=== PATIENT | female | born 1975 | race Caucasian/White ===

== ENCOUNTER 2016-06-19 17:21 | Emergency (ER) | payer OTHER ==
[2016-06-19 17:27] VITALS: TEMP 98.3; BMI 35.4
--- NOTE | 2016-06-19 18:56 | PDOC ---
History of Present Illness - General Chief Complaint: Pain Stated Complaint: PAIN Time Seen by Provider: 06/19/16 18:26 - History of Present Illness Initial Comments: 06/19/16 19:22 Patient brought to emergency department to be evaluated for generalized weakness and significant pain progressive over this past week. No history of trauma, exercise changes, or recent illness. Denies fevers, ear or throat pain, no rashes or lesions, no cough shortness of breath, chest pain or palpitations. Has taken ibuprofen or Tylenol for pain relief with no resolved. Patient is non- insulin-dependent diabetic with borderline hypertension. States blood sugars were "normal" last week. As patient has multiple comorbidities and probable complicated workup, was moved to main emergency department for evaluation and treatment. Family and patient updated to plan, given turnover to NAKITA Mendoza. Past History - Past Medical History Allergies/Adverse Reactions: Allergies Allergy/AdvReac Type Severity Reaction Status Date / Time piperacillin sodium AdvReac Mild Itching Verified 06/19/16 17:27 [From Zosyn] tazobactam sodium AdvReac Mild Itching Verified 06/19/16 17:27 [From Zosyn] Home Medications: Ambulatory Orders Levofloxacin [Levaquin] 500 mg PO DAILY #3 tablet 04/24/16 Oxycodone HCl/Acetaminophen [Percocet 5-325 mg Tablet] 1 - 2 tab PO Q6H #28 tab MDD 4 04/24/16 Asthma: No Cancer: No Cardiac Disorders: No Diabetes: Yes HTN: No Seizures: No Thyroid Disease: No - Surgical History Cholecystectomy: Yes - Psycho/Social/Smoking Cessation Hx Anxiety: No Suicidal Ideation: No Smoking History: Never smoked Have you smoked in the past 12 months: No Hx Alcohol Use: No Drug/Substance Use Hx: No Substance Use Type: None Hx Substance Use Treatment: No *Physical Exam - Vital Signs Last Vital Signs Temp Pulse Resp BP Pulse Ox 98.3 F 85 20 148/94 99 06/19/16 17:23 06/19/16 17:23 06/19/16 17:23 06/19/16 17:23 06/19/16 17:23 ED Treatment Course - LABORATORY CBC & Chemistry Diagram: 06/19/16 19:15 06/19/16 19:15
[2016-06-19 19:29] LABS: BASOPHIL 0.3 % (0-2.0); EOSINOPHIL 2.5 % (0-4.5); MCH 27.7 pg (25.7-33.7); MCHC 33.6 g/dl (32.0-36.0); MEAN CELL VOLUME 82.5 fl (80-96); MEAN PLT VOLUME 7.9 fl (7.5-11.1); NEUTROPHILS 72.7 % (42.8-82.8); PLATELET COUNT 287 K/MM3 (134-434); RDW 13.7 % (11.6-15.6); WHITE BLOOD COUNT 9.6 K/mm3 (4.0-10.0)
[2016-06-19 20:05] LABS: ALBUMIN 3.9 g/dl (3.4-5.0); ANION GAP 9 (8-16); BILIRUBIN,TOTAL 0.4 mg/dL (0.2-1.0); CALCIUM 8.6 mg/dL (8.5-10.1); CO2 25 mmol/L (21-32); CREATININE 0.5 mg/dL (0.55-1.02); GLUCOSE,RANDOM 91 mg/dL (74-106); SGOT/AST 84 U/L (15-37); TOT PROT 7.6 g/dl (6.4-8.2)
[2016-06-19 20:11] LABS: ALK PHOS 124 U/L (45-117); SGPT/ALT 150 U/L (12-78)
[2016-06-19 20:40] LABS: AMYLASE 69 U/L (25-115)
[2016-06-19 20:47] LABS: ERYTHROCYTE SEDIMENTATION RATE 23 mm/hr (0-20)
[2016-06-19 20:48] LABS: URINE APPEARANCE CLEAR; URINE BILIRUBIN NEGATIVE (NEGATIVE); URINE BLOOD NEGATIVE (NEGATIVE); URINE COLOR LTYELLOW; URINE GLUCOSE (UA) NEGATIVE (NEGATIVE); URINE KETONE NEGATIVE (NEGATIVE); URINE LEUK ESTERASE NEGATIVE (NEGATIVE); URINE NITRITE NEGATIVE (NEGATIVE); URINE PROTEIN NEGATIVE (NEGATIVE); URINE UROBILINOGEN 2.0 E.U/dl E.U./dl (0.2-1.0)
--- NOTE | 2016-06-19 21:45 | PDOC ---
History of Present Illness - General Chief Complaint: Pain Stated Complaint: PAIN Time Seen by Provider: 06/19/16 18:26 History Source: Patient, Significant Other Exam Limitations: Language Barrier - History of Present Illness Initial Comments: 06/19/16 21:40 41yo Female patient presents to ED c/o Lt hip pain, bilateral shoulder pain beginning 2 weeks ago. Patient states she is unable to walk today. Denies fall, injury, or trauma. Denies medications use. Denies n/v/d, fever, CP, Abd pain, back pain, diff breathing, or any other complaints at this time. Associated sweating. Patient reports having a baby 1 year ago. Timing/Duration: other (2 weeks.) Severity: moderate Modifying Factors: improves with: rest Associated Symptoms: reports: diaphoresis, weakness. denies: chest pain, fever/ chills, headaches, malaise, seizure, shortness of breath, syncope Past History - Travel Traveled outside of the country in the last 30 days: No Close contact w/someone who was outside of country & ill: No - Past Medical History Allergies/Adverse Reactions: Allergies Allergy/AdvReac Type Severity Reaction Status Date / Time piperacillin sodium AdvReac Mild Itching Verified 06/19/16 17:27 [From Zosyn] tazobactam sodium AdvReac Mild Itching Verified 06/19/16 17:27 [From Zosyn] Home Medications: Ambulatory Orders Ibuprofen 600 mg PO Q6H PRN #30 tablet 06/20/16 Oxycodone HCl/Acetaminophen [Endocet 7.5-325 mg Tablet] 1 each PO Q4H PRN #18 tablet MDD 4 tabs 06/20/16 Prednisone [Deltasone -] 40 mg PO DAILY #14 tablet 06/20/16 Asthma: No Cancer: No Cardiac Disorders: No Diabetes: Yes HTN: No Seizures: No Thyroid Disease: No - Surgical History Cholecystectomy: Yes - Psycho/Social/Smoking Cessation Hx Anxiety: No Suicidal Ideation: No Smoking History: Never smoked Have you smoked in the past 12 months: No Hx Alcohol Use: No Drug/Substance Use Hx: No Substance Use Type: None Hx Substance Use Treatment: No Review of Systems - Review of Systems Able to Perform ROS?: Yes Is the patient limited Cambodian proficient: No Constitutional: Yes: Weakness. No: Chills, Fever, Loss of Appetite, Malaise, Night Sweats, Unexplained wgt Loss HEENTM: No: Blurred Vision, Double Vision, Throat Pain, Difficulty Swallowing Respiratory: No: Cough, Orthopnea, Shortness of Breath, Stridor, Wheezing, Productive cough, Hemoptysis Cardiac (ROS): No: Chest Pain, Edema, Lightheadedness, Palpitations, Syncope, Chest Tightness ABD/GI: No: Constipated, Diarrhea, Nausea, Poor Appetite, Vomiting : No: Dysuria, Frequency, Flank Pain, Hematuria Musculoskeletal: Yes: Joint Pain, Muscle Weakness. No: Back Pain, Muscle Pain, Neck Pain Integumentary: Yes: Sweating. No: Bruising, Erythema, Pruritus, Rash Neurological: Yes: Weakness, Unsteady Gait. No: Headache, Numbness, Paresthesia , Seizure, Tingling, Tremors, Ataxia Psychiatric: No: Anxiety, Depression, Stressors All Other Systems: Reviewed and Negative *Physical Exam - Vital Signs Last Vital Signs Temp Pulse Resp BP Pulse Ox 98.3 F 85 20 148/94 99 06/19/16 17:23 06/19/16 17:23 06/19/16 17:23 06/19/16 17:23 06/19/16 17:23 - Physical Exam General Appearance: Yes: Nourished, Appropriately Dressed. No: Apparent Distress, Mild Distress, Moderate Distress, Severe Distress HEENT: positive: EOMI, CHRISSY, Normal ENT Inspection, Normal Voice, Symmetrical, TMs Normal, Pharynx Normal. negative: Pale Conjunctivae, Photophobia, Nasal Congestion, Rhinorrhea, Sinus Tenderness, TM Bulging, TM Dull, TM Erythema Neck: positive: Trachea midline, Supple. negative: Rigid, Decreased range of motion, Stridor Respiratory/Chest: positive: Lungs Clear, Normal Breath Sounds. negative: Respiratory Distress, Accessory Muscle Use, Labored Respiration, Rapid RR Cardiovascular: positive: Regular Rhythm, Regular Rate. negative: Edema, JVD, Murmur Gastrointestinal/Abdominal: positive: Normal Bowel Sounds, Soft, Distended. negative: Tender, Guarding, Rebound, Tenderness Musculoskeletal: positive: Normal Inspection. negative: CVA Tenderness, CVA Tenderness (R), CVA Tenderness (L) Extremity: positive: Normal Capillary Refill, Normal Inspection, Normal Range of Motion, Tender (+ Tenderness to Lt hip on examination. Decreased passive ROM. 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 intact, Fully Oriented, Alert, Normal Mood/ Affect, Normal Response ED Treatment Course - LABORATORY CBC & Chemistry Diagram: 06/19/16 19:15 06/19/16 19:15 - ADDITIONAL ORDERS Additional order review: Laboratory Results 06/19/16 06/19/16 06/19/16 20:10 19:38 19:15 Sodium Potassium Chloride Carbon Dioxide Anion Gap BUN Creatinine Creat Clearance w eGFR Random Glucose Calcium Total Bilirubin AST ALT Alkaline Phosphatase C-Reactive Protein 3.0 H D Total Protein Albumin Total Amylase Cancelled Lipase Cancelled Urine Color Ltyellow Urine Appearance Clear Urine pH 7.0 Ur Specific [place] 1.018 Urine Protein Negative Urine Glucose (UA) Negative Urine Ketones Negative Urine Blood Negative Urine Nitrite Negative Urine Bilirubin Negative Urine Urobilinogen 2.0 e.u/dl H Ur Leukocyte Esterase Negative Urine HCG, Qual Negative 06/19/16 19:15 Sodium 139 Potassium 4.1 Chloride 105 Carbon Dioxide 25 Anion Gap 9 BUN 8 Creatinine 0.5 L Creat Clearance w eGFR > 60 Random Glucose 91 Calcium 8.6 Total Bilirubin 0.4 D AST 84 H ALT 150 H Alkaline Phosphatase 124 H C-Reactive Protein Total Protein 7.6 D Albumin 3.9 D Total Amylase 69 D Lipase 125 Urine Color Urine Appearance Urine pH Ur Specific [place] Urine Protein Urine Glucose (UA) Urine Ketones Urine Blood Urine Nitrite Urine Bilirubin Urine Urobilinogen Ur Leukocyte Esterase Urine HCG, Qual 06/19/16 19:15 RBC 5.00 MCV 82.5 MCHC 33.6 RDW 13.7 MPV 7.9 Neutrophils % 72.7 Lymphocytes % 17.2 D Monocytes % 7.3 Eosinophils % 2.5 D Basophils % 0.3 - RADIOLOGY Radiology Studies Ordered: Category Date Time Status HEAD CT WITHOUT CONTRAST [CT] Stat CT Scan 06/19/16 21:37 Ordered CHEST PA & LAT [RAD] Stat Radiology 06/19/16 19:25 Ordered HIP & PELVIS-LEFT [RAD] Stat Radiology 06/19/16 19:25 Ordered Medical Decision Making - Medical Decision Making 06/20/16 00:51 Ct- Head- Neg Xrays- Neg. Elevated CRP and ESR. Patient ambulated to [facility] with minimal assistance. Still has pain to left hip.] Plan: f/u with Tubing Tester and Rx pain and steroids. *DC/Admit/Observation/Transfer Diagnosis at time of Disposition: Polymyalgia - Discharge Dispostion Disposition: HOME Condition at time of disposition: Improved Admit: No - Prescriptions Prescriptions: Prednisone [Deltasone -] 40 mg PO DAILY #14 tablet Oxycodone HCl/Acetaminophen [Endocet 7.5-325 mg Tablet] 1 each PO Q4H PRN #18 tablet MDD 4 tabs PRN Reason: Severe Pain Ibuprofen 600 mg PO Q6H PRN #30 tablet PRN Reason: Pain - Referrals Referrals: Fidelina Álvarez MD [Primary Care Provider] - Javon Reyes MD [Staff Physician] - - Patient Instructions Printed Discharge Instructions: Polymyalgia Rheumatica Additional Instructions: FOLLOW UP WITH DR. REYES (ORTHOPEDIC). CALL TO SCHEDULE APPOINTMENT. TAKE MEDICATIONS PRESCRIBED. DO NOT DRIVE, DRINK ALCOHOL, OR OPERATE HEAVY MACHINERY WHILE TAKING ENDOCET. GET LOTS OF REST. DRINK PLENTY WATER. RETURN IF SYMPTOMS WORSEN OR ANY CONCERNS FOR FURTHER EVALUATION. Print Language: NIGERIAN
[2016-06-19] MEDS ORDERED: methylPREDNISolone NA SUCC 125 MG/2 ML VIAL IVPB ONE (23:18)
[2016-06-19] MEDS ORDERED: SODIUM CHLORIDE 1,000 ML IV STA (23:18)
[2016-06-19] MEDS ORDERED: methylPREDNISolone NA SUCC 125 MG/2 ML VIAL ONE (23:24)
[2016-06-19 23:39] VITALS: BP 135/87; PULSE 80
[2016-06-20] MEDS ORDERED: OXYCODONE/APAP 5/325MG COMBO TABLET PO ONE (01:03)
[2016-06-20] MEDS ORDERED: OXYCODONE/APAP 5/325MG COMBO TABLET ONE (01:07)
== END 2016-06-20 01:17 | disposition home or self-care (01) ==
LOC: JERFT 17:21 → JER 17:21
PROC: 3E033GC Introduction of Other Therapeutic Substance into Peripheral Vein, Percutaneous Approach (ICD-10-PCS; principal; 2016-06-19)
PROC: 3E0337Z Introduction of Electrolytic and Water Balance Substance into Peripheral Vein, Percutaneous Approach (ICD-10-PCS; 2016-06-19)
DX: M35.3 Polymyalgia rheumatica (principal); E11.9 Type 2 diabetes mellitus without complications; I10 Essential (primary) hypertension
CPT/HCPCS: 36415; 70450-TC; 71020-TC; 73523-TC; 80053; 81003; 82150; 83690; 84703; 85025; 85651; 86140; 99282-25

== ENCOUNTER 2019-05-24 18:08 | Emergency (ER) | payer OTHER ==
[2019-05-24 18:20] VITALS: BP 145/87; PULSE 100; TEMP 99.3; BMI 35.4
--- NOTE | 2019-05-24 18:20 | PDOC ---
Rapid Medical Evaluation Time Seen by Provider: 05/24/19 18:18 Medical Evaluation: Allergies Allergy/AdvReac Type Severity Reaction Status Date / Time piperacillin sodium AdvReac Mild Itching Verified 06/19/16 17:27 [From Zosyn] tazobactam sodium AdvReac Mild Itching Verified 06/19/16 17:27 [From Zosyn] 05/24/19 18:18 CC: fever, cough, nasal congestion, body aches x1 day PE: Lungs CTAB Orders: influenza, tylenol Patient will proceed to ER for further evaluation. Discharge Disposition - Diagnosis Influenza-like illness - Referrals Referrals: Fidelina Álvarez MD [Primary Care Provider] - - Patient Instructions - Post Discharge Activity
[2019-05-24] MEDS ORDERED: ALBUTEROL SO4 2.5/IPRATROPIUM 0.5 INH SOL 3 ML VIAL.NEB. NEB SCH (18:30)
[2019-05-24] MEDS ORDERED: guaiFENesin/CODEINE 10 ML UNIT-DOSE CUPS PO ONE (18:50)
[2019-05-24] MEDS ORDERED: IBUPROFEN 400 MG TABLET (FP) PO ONE ×2 (18:50→19:07)
--- NOTE | 2019-05-24 18:56 | PDOC ---
History of Present Illness - General Chief Complaint: Cold Symptoms Stated Complaint: FEVER Time Seen by Provider: 05/24/19 18:18 History Source: Patient - History of Present Illness Timing/Duration: reports: yesterday Past History - Past Medical History Allergies/Adverse Reactions: Allergies Allergy/AdvReac Type Severity Reaction Status Date / Time piperacillin sodium AdvReac Mild Itching Verified 05/24/19 18:20 [From Zosyn] tazobactam sodium AdvReac Mild Itching Verified 05/24/19 18:20 [From Zosyn] Home Medications: Ambulatory Orders Ibuprofen 600 mg PO Q6H PRN #30 tablet 06/20/16 Oxycodone HCl/Acetaminophen [Endocet 7.5-325 mg Tablet] 1 each PO Q4H PRN #18 tablet MDD 4 tabs 06/20/16 predniSONE [Deltasone -] 40 mg PO DAILY #14 tablet 06/20/16 Oseltamivir Phosphate [Tamiflu] 75 mg PO BID #10 capsule 05/24/19 Asthma: Yes Cancer: No Cardiac Disorders: No COPD: No Diabetes: Yes HTN: No Seizures: No Thyroid Disease: No - Surgical History Cholecystectomy: Yes - Psycho Social/Smoking Cessation Hx Smoking History: Never smoked Have you smoked in the past 12 months: No Hx Alcohol Use: No Drug/Substance Use Hx: No Substance Use Type: None Hx Substance Use Treatment: No Review of Systems - Review of Systems Constitutional: Yes: Chills, Malaise. No: Fever HEENTM: Yes: Nose Congestion. No: Throat Pain, Throat Swelling Respiratory: Yes: Cough. No: Wheezing Cardiac (ROS): No: Chest Tightness *Physical Exam - Vital Signs Last Vital Signs Temp Pulse Resp BP Pulse Ox 99.3 F 100 H 18 145/87 99 05/24/19 18:16 05/24/19 18:16 05/24/19 18:16 05/24/19 18:16 05/24/19 18:16 - Physical Exam General Appearance: Yes: Appropriately Dressed HEENT: positive: Normal ENT Inspection, Normal Voice, TMs Normal, Pharynx Normal. negative: Scleral Icterus (R), Scleral Icterus (L) Neck: positive: Supple Respiratory/Chest: positive: Lungs Clear, Normal Breath Sounds. negative: Respiratory Distress Cardiovascular: positive: Regular Rate, S1, S2 Integumentary: positive: Dry, Warm Neurologic: positive: Fully Oriented, Alert, Normal Mood/Affect ED Treatment Course - RADIOLOGY Radiology Studies Ordered: Category Date Time Status CHEST PA & LAT [RAD] Stat Radiology 05/24/19 18:51 Ordered Medical Decision Making - Medical Decision Making 05/24/19 18:53 44-year-old female, no significant history, here with cough with congestion, body aches, fever and chills since yesterday. Patient unsure if she feels short of breath. No hemoptysis, chest pain, nausea, vomiting or diarrhea see exam Viral syndrome, r/o influenza, CXR given ? sob Leslie uncomfortable w/ HR 100 -symptomatic tx in ER 05/24/19 19:50 Flu +. CXR neg. Dc w/ tamiflu and supportive tx. Contact precautions given Discharge - Discharge Information Problems reviewed: Yes Clinical Impression/Diagnosis: Influenza Condition: Stable Disposition: HOME - Additional Discharge Information Prescriptions: Oseltamivir Phosphate [Tamiflu] 75 mg PO BID #10 capsule - Follow up/Referral Referrals: Fidelina Álvarez MD [Primary Care Provider] - - Patient Discharge Instructions Patient Printed Discharge Instructions: Influenza Additional Instructions: You have the flu. Take Motrin or Tylenol for pain/fever. Also rest and drink plenty fluids Take Tamiflu as directed Print Language: TURKISH - Post Discharge Activity
[2019-05-24] MEDS ORDERED: guaiFENesin/CODEINE 5 ML UNIT-DOSE CUPS PO ONE (19:07)
== END 2019-05-24 20:17 | disposition home or self-care (01) ==
LOC: JERFT 18:08
DX: J11.1 Influenza due to unidentified influenza virus with other respiratory manifestations (principal); E11.9 Type 2 diabetes mellitus without complications; J45.909 Unspecified asthma, uncomplicated; Z88.1 Allergy status to other antibiotic agents
CPT/HCPCS: 71046-TC-FY; 87804; 99281-25

== ENCOUNTER 2021-10-16 09:20 | Emergency (ER) | payer OTHER ==
[2021-10-16 09:25] VITALS: BP 119/80; PULSE 82; TEMP 98.2; BMI 33.4
[2021-10-16] MEDS ORDERED: ACETAMINOPHEN 500 MG TABLET (FP) ONE (10:35)
[2021-10-16] MEDS ORDERED: ACETAMINOPHEN 500 MG TABLET (FP) PO ONE (10:35)
== END 2021-10-16 14:30 | disposition home or self-care (01) ==
LOC: JER 09:20
DX: S00.33XA Contusion of nose, initial encounter (principal); S05.92XA Unspecified injury of left eye and orbit, initial encounter; S09.92XA Unspecified injury of nose, initial encounter; W01.0XXA Fall on same level from slipping, tripping and stumbling without subsequent striking against object, initial encounter
CPT/HCPCS: 70450-TC; 70486-TC; 72125-TC; 99285-25

== ENCOUNTER 2021-10-27 13:34 | Emergency (ER) | payer OTHER ==
[2021-10-27 13:50] VITALS: TEMP 98.3; BMI 33.3
[2021-10-27] MEDS ORDERED: SODIUM CHLORIDE 0.9% 500 ML INFUS.BAG IV ONE ×2 (14:27→14:29)
[2021-10-27 16:35] LABS: VENOUS BASE EXCESS -1.4 mmol/L (-2-2); VENOUS O2 SATURATION 81.5 % (70-80); VENOUS PCO2 47.3 mmHg (38-52); VENOUS PH 7.339 (7.310-7.410)
[2021-10-27 16:37] LABS: BASO % 0.5 % (0-2.0); EOS % 3.9 % (0-4.5); HEMATOCRIT 37.8 % (32.4-45.2); HEMOGLOBIN 12.9 GM/dL (10.7-15.3); LYMPH % 20.2 % (8-40); MCH 26.9 pg (25.7-33.7); MCHC 34.3 g/dl (32.0-36.0); MEAN CELL VOLUME 78.6 fl (80-96); MEAN PLT VOLUME 8.3 fl (7.5-11.1); MONO % 8.2 % (3.8-10.2); NEUT % 67.2 % (42.8-82.8); PLATELET COUNT 293 10^3/uL (134-434); RDW 15.4 % (11.6-15.6); WHITE BLOOD COUNT 6.7 K/mm3 (4.0-10.0)
[2021-10-27 17:00] LABS: CHLORIDE 98 mmol/L (98-107); SODIUM 134 mmol/L (136-145)
[2021-10-27 17:02] LABS: CALCIUM 9.1 mg/dL (8.5-10.1)
[2021-10-27 17:04] LABS: ALBUMIN 3.3 g/dl (3.4-5.0); ANION GAP 9 MMOL/L (8-16); BLOOD UREA NITROGEN 9.8 mg/dL (7-18); CO2 27 mmol/L (21-32)
[2021-10-27 17:07] LABS: CREATININE 0.7 mg/dL (0.55-1.3); SGOT/AST 31 U/L (15-37); SGPT/ALT 48 U/L (13-61)
[2021-10-27 17:08] LABS: BILIRUBIN,TOTAL 0.4 mg/dL (0.2-1); TOT PROT 6.8 g/dl (6.4-8.2)
[2021-10-27 17:09] LABS: ALK PHOS 169 U/L (45-117)
[2021-10-27 17:17] LABS: PH,URINE 5.5 (5.0-8.0); URINE APPEARANCE CLEAR; URINE BILIRUBIN NEGATIVE (NEGATIVE); URINE COLOR YELLOW; URINE GLUCOSE (UA) 2+ (NEGATIVE); URINE KETONE NEGATIVE (NEGATIVE); URINE LEUK ESTERASE NEGATIVE (NEGATIVE); URINE NITRITE NEGATIVE (NEGATIVE); URINE PROTEIN NEGATIVE (NEGATIVE); URINE UROBILINOGEN 0.2 mg/dL (0.2-1.0)
[2021-10-27 17:18] LABS: EPI CELLS 12 /uL (0-25.1); HYALINE CASTS 0 /uL (0-3.1); URINE BACTERIA 234 /uL (0-1359); URINE RBC 12 /uL (0-23.9)
[2021-10-27 17:24] LABS: GLUCOSE,RANDOM 501 mg/dL (74-106)
[2021-10-27 19:24] VITALS: BP 136/92; PULSE 76
[2021-10-27 22:27] LABS: URINE WBC 77 /uL (0-25.8)
== END 2021-10-27 19:00 | disposition home or self-care (01) ==
LOC: JER 13:34
DX: R73.9 Hyperglycemia, unspecified (principal)
CPT/HCPCS: 36415; 80053; 81003; 82010; 82803; 82962; 83735; 85025; 87077; 87086; 93005; 93010; 99284-25

== ENCOUNTER 2022-04-15 20:55 | Emergency (ER) | payer OTHER ==
[2022-04-15 21:41] VITALS: BP 116/48; PULSE 74; RESP 18; TEMP 98.1; BMI 36.3
== END 2022-04-16 01:56 | disposition home or self-care (01) ==
LOC: JERFT 20:55 → JER 20:55 → JERFT 04-16 01:56
DX: H60.02 Abscess of left external ear (principal)
CPT/HCPCS: 99281-25

== ENCOUNTER 2022-09-21 12:00 | Emergency (ER) | payer OTHER ==
[2022-09-21 12:32] VITALS: BP 132/81; RESP 18; TEMP 98.5; BMI 35.3
[2022-09-21 13:08] LABS: THROAT:GRP A STREP NOT DETECTED (NOTDETECTED)
[2022-09-21] MEDS ORDERED: ALBUTEROL SO4 2.5/IPRATROPIUM 0.5 INH SOL 3 ML VIAL.NEB. NEB ONE ×2 (13:13→13:25)
[2022-09-21] MEDS ORDERED: predniSONE 20 MG TABLET (UD) PO ONE ×2 (13:15→15:05)
[2022-09-21] MEDS ORDERED: LORATADINE 10 MG TABLET PO ONE (15:05)
[2022-09-21] MEDS ORDERED: predniSONE 20 MG TABLET (UD) ONE (15:08)
[2022-09-21] MEDS ORDERED: LORATADINE 10 MG TABLET ONE (15:08)
[2022-09-21 15:14] VITALS: PULSE 77
== END 2022-09-21 15:24 | disposition home or self-care (01) ==
LOC: JERFT 12:00 → JER 12:00 → JERFT 15:24
PROC: 3E0F7GC Introduction of Other Therapeutic Substance into Respiratory Tract, Via Natural or Artificial Opening (ICD-10-PCS; principal; 2022-09-21)
DX: R05.3 Chronic cough (principal); J02.9 Acute pharyngitis, unspecified; R06.02 Shortness of breath; Z20.822 Contact with and (suspected) exposure to COVID-19
CPT/HCPCS: 0241U-QW; 71046-TC-FY; 87651; 99284-25

== ENCOUNTER 2023-02-18 19:05 | Inpatient (IN) | payer OTHER ==
[2023-02-18 19:15] VITALS: BMI 31.2
[2023-02-18] MEDS ORDERED: ACETAMINOPHEN 1000 MG/100 ML BAG IVPB ONE (20:56)
[2023-02-18] MEDS ORDERED: SODIUM CHLORIDE 1,000 ML IV STA ×2 (20:56→22:07)
[2023-02-18] MEDS ORDERED: ONDANSETRON 4 MG/2 ML VIAL IVPUSH ONE (20:56)
[2023-02-18] MEDS ORDERED: FAMOTIDINE 20 MG/50 ML IVPB 20 MG/50 ML MG IVPB ONE ×2 (20:57→21:05)
[2023-02-18] MEDS ORDERED: ACETAMINOPHEN INJECTION 100 ML IVPB ONE (21:05)
[2023-02-18] MEDS ORDERED: ONDANSETRON 4 MG/2 ML VIAL ONE (21:05)
[2023-02-18 21:22] LABS: BASO % 0.5 % (0-2.0); EOS % 6.2 % (0-4.5); HEMOGLOBIN 15.9 GM/dL (10.7-15.3); MCHC 36.2 g/dl (32.0-36.0); MEAN CELL VOLUME 80.1 fl (80-96); MONO % 13.2 % (3.8-10.2); NEUT % 62.1 % (42.8-82.8); PLATELET COUNT 365 10^3/uL (134-434); RDW 14.1 % (11.6-15.6); WHITE BLOOD COUNT 7.9 K/mm3 (4.0-10.0)
[2023-02-18 21:44] LABS: POTASSIUM 4.2 mmol/L (3.5-5.1)
[2023-02-18 21:48] LABS: ALBUMIN 3.7 g/dl (3.4-5.0); BLOOD UREA NITROGEN 10.3 mg/dL (7-18); CALCIUM 9.4 mg/dL (8.5-10.1)
[2023-02-18 21:51] LABS: CREATININE 0.7 mg/dL (0.55-1.3)
[2023-02-18 21:52] LABS: URINE APPEARANCE CLEAR; URINE COLOR YELLOW
[2023-02-18 21:53] LABS: BILIRUBIN,TOTAL 0.6 mg/dL (0.2-1); PH,URINE 5.5 (5.0-8.0); TOT PROT 7.6 g/dl (6.4-8.2); URINE BILIRUBIN NEGATIVE (NEGATIVE); URINE KETONE >=160 (NEGATIVE); URINE NITRITE NEGATIVE (NEGATIVE); URINE PROTEIN TRACE (NEGATIVE); URINE UROBILINOGEN 0.2 mg/dL (0.2-1.0)
[2023-02-18 21:54] LABS: URINE LEUK ESTERASE NEGATIVE (NEGATIVE)
[2023-02-18 23:20] LABS: VENOUS BASE EXCESS -6.8 mmol/L (-2-2); VENOUS O2 SATURATION 84.8 % (70-80); VENOUS PCO2 37.3 mmHg (38-52); VENOUS PH 7.317 (7.310-7.410)
[2023-02-19] MEDS ORDERED: ALBUTEROL SO4 2.5/IPRATROPIUM 0.5 INH SOL 3 ML VIAL.NEB. NEB ONE ×4 (00:16→23:00)
[2023-02-19] MEDS ORDERED: ALBUTEROL SO4 HFA INHALER IH PRN (01:16)
[2023-02-19] MEDS ORDERED: ALBUTEROL SO4 HFA INHALER IH ONE (01:29)
[2023-02-19] MEDS ORDERED: ENOXAPARIN NA (PORCINE) 40 MG/0.4 ML DISP.SYRIN SQ ONE (10:42)
[2023-02-19] MEDS ORDERED: ACETAMINOPHEN 1000 MG/100 ML BAG IVPB PRN (11:00)
[2023-02-19] MEDS: LACTATED RINGERS SOLUTION 1,000 ML/1,000 ML INFUS.BAG IV SCH (11:30)
[2023-02-19] MEDS: ENOXAPARIN NA (PORCINE) 40 MG/0.4 ML DISP.SYRIN SQ SCH (11:30)
[2023-02-19] MEDS ORDERED: ACETAMINOPHEN INJECTION 100 ML IVPB ONE (12:05)
[2023-02-19] MEDS ORDERED: FOLIC ACID 1 MG TABLET (FP) ONE (12:05)
[2023-02-19] MEDS: FOLIC ACID 1 MG TABLET (FP) PO SCH (12:21)
[2023-02-19] MEDS: INSULIN SLIDING SCALE (NOVOLOG) 1 VIAL SQ SCH ×3 (12:34→21:55)
[2023-02-19 13:22] LABS: MAGNESIUM 1.8 mg/dL (1.8-2.4)
[2023-02-19] MEDS ORDERED: ONDANSETRON 4 MG/2 ML VIAL IVPUSH PRN (14:30)
[2023-02-19] MEDS ORDERED: MELATONIN 5 MG TABLETS PO PRN (14:35)
[2023-02-20] MEDS: INSULIN SLIDING SCALE (NOVOLOG) 1 VIAL SQ SCH ×4 (06:13→22:15)
[2023-02-20] MEDS: levoFLOXacin 750 MG TABLET PO SCH (06:13)
[2023-02-20] MEDS: LACTATED RINGERS SOLUTION 1,000 ML/1,000 ML INFUS.BAG IV SCH ×2 (07:35→14:35)
[2023-02-20] MEDS: ALBUTEROL SO4 2.5/IPRATROPIUM 0.5 INH SOL 3 ML VIAL.NEB. NEB SCH ×4 (09:52→20:30)
[2023-02-20] MEDS: FOLIC ACID 1 MG TABLET (FP) PO SCH (10:04)
[2023-02-20] MEDS: ENOXAPARIN NA (PORCINE) 40 MG/0.4 ML DISP.SYRIN SQ SCH (10:04)
[2023-02-20 10:06] LABS: BASO % 0.5 % (0-2.0); EOS % 8.8 % (0-4.5); HEMATOCRIT 42.1 % (32.4-45.2); HEMOGLOBIN 14.5 GM/dL (10.7-15.3); LYMPH % 15.9 % (8-40); MCH 28.2 pg (25.7-33.7); MCHC 34.6 g/dl (32.0-36.0); MEAN CELL VOLUME 81.7 fl (80-96); MEAN PLT VOLUME 8.1 fl (7.5-11.1); MONO % 12.7 % (3.8-10.2); NEUT % 62.1 % (42.8-82.8); PLATELET COUNT 315 10^3/uL (134-434); RBC 5.15 M/mm3 (3.60-5.2); RDW 14.1 % (11.6-15.6); WHITE BLOOD COUNT 6.3 K/mm3 (4.0-10.0)
[2023-02-20 10:23] LABS: CHLORIDE 105 mmol/L (98-107); POTASSIUM 3.5 mmol/L (3.5-5.1); SODIUM 139 mmol/L (136-145)
[2023-02-20 10:25] LABS: ALBUMIN 3.1 g/dl (3.4-5.0); GLUCOSE,RANDOM 284 mg/dL (74-106); MAGNESIUM 1.4 mg/dL (1.8-2.4)
[2023-02-20 10:28] LABS: CREATININE 0.6 mg/dL (0.55-1.3); SGOT/AST 25 U/L (15-37); SGPT/ALT 31 U/L (13-61)
[2023-02-20 10:30] LABS: BILIRUBIN,TOTAL 0.4 mg/dL (0.2-1); TOT PROT 6.7 g/dl (6.4-8.2)
[2023-02-20 10:37] LABS: ALK PHOS 106 U/L (45-117); ANION GAP 8 MMOL/L (8-16); BLOOD UREA NITROGEN 2.8 mg/dL (7-18); CO2 26 mmol/L (21-32)
[2023-02-20] MEDS ORDERED: MAGNESIUM 1GM/D5W - 1 GM/100 ML IVPB IVPB ONE (11:15)
[2023-02-20] MEDS: BUDESONIDE/FORMETEROL FUMARATE 160/4.5 mcg INHALER IH SCH ×2 (12:33→22:17)
[2023-02-20] MEDS ORDERED: INSULIN (LEVEMIR) 100 UNITS/ML UNITS SQ SCH (22:00)
[2023-02-20] MEDS: INSULIN (LEVEMIR) 100 UNITS/ML UNITS SQ SCH (22:16)
[2023-02-21] MEDS: levoFLOXacin 750 MG TABLET PO SCH (06:47)
[2023-02-21] MEDS: INSULIN SLIDING SCALE (NOVOLOG) 1 VIAL SQ SCH ×4 (06:47→21:12)
[2023-02-21] MEDS: INSULIN (LEVEMIR) 100 UNITS/ML UNITS SQ SCH ×2 (06:48→21:15)
[2023-02-21] MEDS: ALBUTEROL SO4 2.5/IPRATROPIUM 0.5 INH SOL 3 ML VIAL.NEB. NEB SCH ×4 (07:15→20:05)
[2023-02-21] MEDS: FOLIC ACID 1 MG TABLET (FP) PO SCH (09:55)
[2023-02-21] MEDS: ENOXAPARIN NA (PORCINE) 40 MG/0.4 ML DISP.SYRIN SQ SCH (09:55)
[2023-02-21] MEDS: BUDESONIDE/FORMETEROL FUMARATE 160/4.5 mcg INHALER IH SCH ×2 (09:55→21:15)
[2023-02-21 10:04] LABS: HEMATOCRIT 41.9 % (32.4-45.2); HEMOGLOBIN 14.5 GM/dL (10.7-15.3); MCH 28.1 pg (25.7-33.7); MCHC 34.7 g/dl (32.0-36.0); MEAN CELL VOLUME 81.1 fl (80-96); MEAN PLT VOLUME 7.9 fl (7.5-11.1); PLATELET COUNT 336 10^3/uL (134-434); RBC 5.17 M/mm3 (3.60-5.2); RDW 13.9 % (11.6-15.6); WHITE BLOOD COUNT 5.3 K/mm3 (4.0-10.0)
[2023-02-21 10:06] LABS: CHLORIDE 104 mmol/L (98-107); POTASSIUM 3.3 mmol/L (3.5-5.1); SODIUM 138 mmol/L (136-145)
[2023-02-21 10:12] LABS: GLUCOSE,RANDOM 228 mg/dL (74-106)
[2023-02-21 10:13] LABS: ANION GAP 8 MMOL/L (8-16); CALCIUM 8.8 mg/dL (8.5-10.1); CO2 26 mmol/L (21-32); MAGNESIUM 1.7 mg/dL (1.8-2.4)
[2023-02-21 10:16] LABS: CREATININE 0.5 mg/dL (0.55-1.3); PHOSPHOROUS 4.1 mg/dL (2.5-4.9); SGOT/AST 28 U/L (15-37); SGPT/ALT 33 U/L (13-61)
[2023-02-21 10:18] LABS: ALK PHOS 100 U/L (45-117); BILIRUBIN,TOTAL 0.7 mg/dL (0.2-1); BLOOD UREA NITROGEN 2.2 mg/dL (7-18); TOT PROT 6.4 g/dl (6.4-8.2)
[2023-02-21] MEDS ORDERED: MAGNESIUM SULF 50% (8.12 MEQ/2 ML-1 GM VIAL) IVPB ONE (10:23)
[2023-02-21] MEDS: KCL 10 MEQ IVPB 10 MEQ/100 ML INFUS.BAG IVPB SCH ×3 (12:26→16:28)
[2023-02-22] MEDS: levoFLOXacin 750 MG TABLET PO SCH (05:22)
[2023-02-22] MEDS: INSULIN SLIDING SCALE (NOVOLOG) 1 VIAL SQ SCH ×4 (06:17→22:02)
[2023-02-22] MEDS: INSULIN (LEVEMIR) 100 UNITS/ML UNITS SQ SCH ×2 (06:19→22:04)
[2023-02-22] MEDS: ALBUTEROL SO4 2.5/IPRATROPIUM 0.5 INH SOL 3 ML VIAL.NEB. NEB SCH ×4 (07:45→21:59)
[2023-02-22 07:46] LABS: BASO % 0.6 % (0-2.0); EOS % 13.6 % (0-4.5); HEMATOCRIT 40.5 % (32.4-45.2); MCH 28.3 pg (25.7-33.7); MCHC 34.5 g/dl (32.0-36.0); MEAN CELL VOLUME 81.9 fl (80-96); MEAN PLT VOLUME 7.5 fl (7.5-11.1); MONO % 12.4 % (3.8-10.2); NEUT % 51.4 % (42.8-82.8); PLATELET COUNT 318 10^3/uL (134-434); RBC 4.94 M/mm3 (3.60-5.2); RDW 13.6 % (11.6-15.6); WHITE BLOOD COUNT 5.6 K/mm3 (4.0-10.0)
[2023-02-22 08:10] LABS: CHLORIDE 105 mmol/L (98-107); POTASSIUM 3.5 mmol/L (3.5-5.1); SODIUM 140 mmol/L (136-145)
[2023-02-22 08:15] LABS: CALCIUM 8.6 mg/dL (8.5-10.1); GLUCOSE,RANDOM 190 mg/dL (74-106); MAGNESIUM 1.7 mg/dL (1.8-2.4)
[2023-02-22 08:16] LABS: ANION GAP 7 MMOL/L (8-16); CO2 28 mmol/L (21-32)
[2023-02-22 08:18] LABS: CREATININE 0.6 mg/dL (0.55-1.3); PHOSPHOROUS 4.5 mg/dL (2.5-4.9); SGOT/AST 77 U/L (15-37); SGPT/ALT 46 U/L (13-61)
[2023-02-22 08:19] LABS: BILIRUBIN,TOTAL 0.4 mg/dL (0.2-1)
[2023-02-22 08:20] LABS: ALK PHOS 95 U/L (45-117); TOT PROT 6.1 g/dl (6.4-8.2)
[2023-02-22 08:26] LABS: BLOOD UREA NITROGEN 1.6 mg/dL (7-18)
[2023-02-22] MEDS: FOLIC ACID 1 MG TABLET (FP) PO SCH (10:37)
[2023-02-22] MEDS: ENOXAPARIN NA (PORCINE) 40 MG/0.4 ML DISP.SYRIN SQ SCH (10:37)
[2023-02-22] MEDS: BUDESONIDE/FORMETEROL FUMARATE 160/4.5 mcg INHALER IH SCH ×2 (10:38→22:05)
[2023-02-22] MEDS ORDERED: PROMETHAZINE HCL ORAL SYRUP 6.25 MG/5 ML (BULK BOTTLE) PO PRN (12:20)
[2023-02-22 15:06] VITALS: RESP 18
[2023-02-22] MEDS: methylPREDNISolone NA SUCC 40 MG/1 ML VIAL IVPUSH SCH ×2 (16:43→22:05)
[2023-02-23] MEDS: methylPREDNISolone NA SUCC 40 MG/1 ML VIAL IVPUSH SCH ×2 (03:46→09:45)
[2023-02-23] MEDS: levoFLOXacin 750 MG TABLET PO SCH (05:46)
[2023-02-23] MEDS: INSULIN SLIDING SCALE (NOVOLOG) 1 VIAL SQ SCH ×4 (06:04→22:11)
[2023-02-23] MEDS: INSULIN (LEVEMIR) 100 UNITS/ML UNITS SQ SCH ×2 (06:04→22:11)
[2023-02-23] MEDS: ALBUTEROL SO4 2.5/IPRATROPIUM 0.5 INH SOL 3 ML VIAL.NEB. NEB SCH ×4 (07:51→20:30)
[2023-02-23] MEDS: FOLIC ACID 1 MG TABLET (FP) PO SCH (09:45)
[2023-02-23] MEDS: ENOXAPARIN NA (PORCINE) 40 MG/0.4 ML DISP.SYRIN SQ SCH (09:45)
[2023-02-23] MEDS: BUDESONIDE/FORMETEROL FUMARATE 160/4.5 mcg INHALER IH SCH ×2 (09:48→22:12)
[2023-02-23] MEDS ORDERED: INSULIN SLIDING SCALE (NOVOLOG) 1 VIAL SQ ONE (17:47)
[2023-02-23] MEDS ORDERED: methylPREDNISolone NA SUCC 40 MG/1 ML VIAL IVPUSH SCH (18:00)
[2023-02-24] MEDS: INSULIN SLIDING SCALE (NOVOLOG) 1 VIAL SQ SCH ×4 (06:10→21:47)
[2023-02-24] MEDS: INSULIN (LEVEMIR) 100 UNITS/ML UNITS SQ SCH ×2 (06:10→21:48)
[2023-02-24] MEDS: ALBUTEROL SO4 2.5/IPRATROPIUM 0.5 INH SOL 3 ML VIAL.NEB. NEB SCH ×4 (07:53→20:30)
[2023-02-24] MEDS ORDERED: methylPREDNISolone NA SUCC 40 MG/1 ML VIAL IVPUSH SCH (10:00)
[2023-02-24] MEDS: FOLIC ACID 1 MG TABLET (FP) PO SCH (10:31)
[2023-02-24] MEDS: ENOXAPARIN NA (PORCINE) 40 MG/0.4 ML DISP.SYRIN SQ SCH (10:32)
[2023-02-24] MEDS: BUDESONIDE/FORMETEROL FUMARATE 160/4.5 mcg INHALER IH SCH ×2 (10:32→21:49)
[2023-02-24 11:33] LABS: BASO % 0.3 % (0-2.0); EOS % 2.5 % (0-4.5); HEMATOCRIT 39.7 % (32.4-45.2); HEMOGLOBIN 13.9 GM/dL (10.7-15.3); LYMPH % 17.7 % (8-40); MCH 28.7 pg (25.7-33.7); MCHC 34.9 g/dl (32.0-36.0); MEAN CELL VOLUME 82.3 fl (80-96); MEAN PLT VOLUME 8.2 fl (7.5-11.1); MONO % 9.4 % (3.8-10.2); NEUT % 70.1 % (42.8-82.8); PLATELET COUNT 336 10^3/uL (134-434); RBC 4.83 M/mm3 (3.60-5.2); WHITE BLOOD COUNT 10.1 K/mm3 (4.0-10.0)
[2023-02-24 11:55] LABS: CHLORIDE 101 mmol/L (98-107); POTASSIUM 3.6 mmol/L (3.5-5.1); SODIUM 136 mmol/L (136-145)
[2023-02-24 12:00] LABS: CALCIUM 8.5 mg/dL (8.5-10.1)
[2023-02-24 12:01] LABS: ANION GAP 9 MMOL/L (8-16); BLOOD UREA NITROGEN 11.3 mg/dL (7-18); CO2 26 mmol/L (21-32)
[2023-02-24 12:04] LABS: CREATININE 0.8 mg/dL (0.55-1.3); SGOT/AST 168 U/L (15-37); SGPT/ALT 90 U/L (13-61)
[2023-02-24 12:05] LABS: BILIRUBIN,TOTAL 0.3 mg/dL (0.2-1)
[2023-02-24 12:06] LABS: ALK PHOS 92 U/L (45-117)
[2023-02-24 12:44] LABS: GLUCOSE,RANDOM 463 mg/dL (74-106)
[2023-02-25] MEDS: INSULIN (LEVEMIR) 100 UNITS/ML UNITS SQ SCH (06:01)
[2023-02-25] MEDS: INSULIN SLIDING SCALE (NOVOLOG) 1 VIAL SQ SCH ×3 (06:02→17:19)
[2023-02-25] MEDS ORDERED: INSULIN (LEVEMIR) 100 UNITS/ML UNITS SQ SCH (07:48)
[2023-02-25] MEDS: ALBUTEROL SO4 2.5/IPRATROPIUM 0.5 INH SOL 3 ML VIAL.NEB. NEB SCH ×3 (08:15→15:05)
[2023-02-25] MEDS ORDERED: predniSONE 10 MG TABLET (UD) PO SCH (10:00)
[2023-02-25] MEDS: FOLIC ACID 1 MG TABLET (FP) PO SCH (10:01)
[2023-02-25] MEDS: ENOXAPARIN NA (PORCINE) 40 MG/0.4 ML DISP.SYRIN SQ SCH (10:02)
[2023-02-25] MEDS: BUDESONIDE/FORMETEROL FUMARATE 160/4.5 mcg INHALER IH SCH (10:02)
[2023-02-25] MEDS: INSULIN (NOVOLOG) ASPART 100 UNITS/ML 10ML VIAL SQ SCH ×2 (11:56→17:20)
[2023-02-25 18:18] VITALS: BP 135/94; PULSE 78; TEMP 98.4
[2023-02-25] MEDS ORDERED: BUDESONIDE/FORMETEROL FUMARATE 160/4.5 mcg INHALER IH SCH (22:00)
== END 2023-02-25 19:30 | disposition home or self-care (01) | DRG 139 ==
LOC: JERFT 19:05 → JERBED 02-19 06:02 → OBSVTOIN 02-19 09:58 → J5S 02-19 19:05
PROVIDERS: ADMIT Internal Medicine; ATTEND Internal Medicine
DX: J18.9 Pneumonia, unspecified organism (principal); A09 Infectious gastroenteritis and colitis, unspecified; E11.65 Type 2 diabetes mellitus with hyperglycemia; J45.901 Unspecified asthma with (acute) exacerbation; M06.9 Rheumatoid arthritis, unspecified; I10 Essential (primary) hypertension; R11.10 Vomiting, unspecified; E78.5 Hyperlipidemia, unspecified; R09.02 Hypoxemia; E87.6 Hypokalemia
CPT/HCPCS: 0241U-QW; 36415; 71046-TC-FY; 71275-TC; 74177-TC; 80053; 81003; 82010; 82272; 82746; 82803; 82962; 82977; 83036; 83690; 83735; 84100; 84703; 85025; 85027; 86140; 87045; 87046; 87077; 87086; 87186; 87205; 87209; 87324; 87449; 87635; 87899; 93005; 93010; 94010; 94640; 94761; 99285-25; G0378